=== PATIENT | female | born 1950 | race Caucasian/White ===

== ENCOUNTER 2023-02-09 05:41 | Day surgery (SDC) | payer MEDICARE, MEDICAID ==
[2023-02-09] VITALS (12 sets, daily range): BP systolic 86–133; BP diastolic 52–89
[~2023-02-09] VITALS: Ht 162.6 cm; Wt 88.9 kg
[2023-02-09] MEDS ORDERED: nitroGLYCERIN 0.4mg SUBLingual tab SL PRN (06:25)
[2023-02-09] MEDS ORDERED: dextrose 50%-water 50ml dispensing syringe IV PRN ×2 (06:25)
[2023-02-09] MEDS ORDERED: DEXTROSE 15 GM of carb/4 tabs (each vial/BOTTLE has 4 tablets) PO PRN ×2 (06:25)
[2023-02-09] MEDS ORDERED: insulin Lispro (HumaLOG) vial - multi-dose SQ SCH (06:25)
[2023-02-09] MEDS ORDERED: MESSAGE TO PHARMACY PO ONE (06:25)
[2023-02-09] MEDS ORDERED: LORazepam 0.5 MG tablet PO PRN (06:25)
[2023-02-09] MEDS ORDERED: glucagon, human recombinant 1mg kit SUBCUT PRN (06:25)
[2023-02-09] MEDS ORDERED: normal saline 1,000 ML IV SCH (06:25)
[2023-02-09] MEDS ORDERED: diphenhydrAMINE 25mg capsule PO PRN (06:25)
[2023-02-09] MEDS ORDERED: DULO30CA52 PO (06:27)
[2023-02-09] MEDS ORDERED: INSU100I31 SQ (06:27)
[2023-02-09] MEDS ORDERED: METF-438 PO (06:27)
[2023-02-09] MEDS ORDERED: CLON0.1T PO (06:27)
[2023-02-09] MEDS ORDERED: ASPI-10 PO (06:32)
[2023-02-09] MEDS ORDERED: METH-352 PO (06:39)
[2023-02-09] MEDS ORDERED: BENZ0.5T43 PO (06:39)
[2023-02-09] MEDS ORDERED: LURA40TA2 PO (06:39)
[2023-02-09] MEDS ORDERED: TRAZ-251 PO (06:39)
[2023-02-09] MEDS ORDERED: METH20TA42 PO (06:39)
[2023-02-09 06:43] LABS: BASOPHILS # (AUTO) 0.1 X10'3 (0-0.2); BASOPHILS % (AUTO) 0.9 % (0-1); EOSINOPHILS # (AUTO) 0.4 X10'3 (0-0.9); EOSINOPHILS % (AUTO) 5.8 % (0-6); HEMATOCRIT 39.5 % (35.0-45.0); LYMPHOCYTES # (AUTO) 2.5 X10'3 (1.1-4.8); LYMPHOCYTES % (AUTO) 33.2 % (21-51); MEAN CORPUSCULAR HEMOGLOBIN 28.8 PG (27.0-31.0); MEAN CORPUSCULAR HGB CONC 32.8 g/dL (33.0-36.5); MEAN CORPUSCULAR VOLUME 87.8 FL (78-98); MONOCYTES # (AUTO) 0.7 X10'3 (0-0.9); MONOCYTES % (AUTO) 8.7 % (2-12); NEUTROPHILS # (AUTO) 3.9 X10'3 (1.8-7.7); NEUTROPHILS % (AUTO) 51.4 % (42-75); PLATELET COUNT 301 X10'3 (140-440); RED CELL DISTRIBUTION WIDTH 13.6 % (11.5-14.5); WHITE BLOOD COUNT 7.5 X10'3 (4.5-11.0)
[2023-02-09 06:56] LABS: ALBUMIN 3.6 G/DL (3.4-5.0); ANION GAP 8 (8-16); BLOOD UREA NITROGEN 16 MG/DL (7-18); BUN/CREATININE RATIO 19.5 (10.0-20.0); CALCIUM 9.1 MG/DL (8.5-10.1); CHLORIDE 101 MMOL/L (99-107); CREATININE 0.82 MG/DL (0.40-0.90); GLUCOSE 292 MG/DL (70-104); POTASSIUM 3.8 MMOL/L (3.5-5.1); SODIUM 138 MMOL/L (135-145); TOTAL CARBON DIOXIDE 28.6 MMOL/L (24-32); eGFR 69 ML/MIN
[2023-02-09 06:57] LABS: APTT 25 SECONDS (22-32)
[2023-02-09] MEDS ORDERED: fentaNYL/PF 50MCG/1 ML 2ML syringe ONE (08:07)
[2023-02-09] MEDS ORDERED: midazolam 1 mg/ML 2ml injection ONE ×2 (08:07→09:31)
[2023-02-09] MEDS ORDERED: LIDOcaine 1% 30ml preserv. free vial ONE (08:07)
[2023-02-09] MEDS ORDERED: iohexol 350 MG/ML 50ML vial IV ONE ×2 (08:08→09:19)
[2023-02-09] MEDS ORDERED: iohexol 350MG/ML 100ml bottle IV ONE (08:08)
[2023-02-09] MEDS ORDERED: proCHLORperazine 10 MG/2 ml inj IV PRN (10:05)
[2023-02-09] MEDS ORDERED: OXAZEpam 15mg capsule PO PRN (10:05)
[2023-02-09] MEDS ORDERED: ondansetron/PF 4mg/2ml inj IV PRN (10:05)
[2023-02-09] MEDS ORDERED: HYDROcodone/acetaminophen 10/325mg tab PO PRN (10:50)
[2023-02-09] MEDS ORDERED: HYDROcodone/acetaminophen 5mg/325mg tablet PO PRN (10:50)
[2023-02-09] MEDS ORDERED: insulin glargine (Lantus) pen - multi-dose SQ SCH (21:00)
== END 2023-02-09 15:50 | disposition home or self-care (01) ==
LOC: SSTAY O 05:41
PROVIDERS: ATTEND Internal Medicine Cardiovascular Disease
DX: R94.39 Abnormal result of other cardiovascular function study (principal); I25.10 Atherosclerotic heart disease of native coronary artery without angina pectoris; E11.9 Type 2 diabetes mellitus without complications; I10 Essential (primary) hypertension; E78.5 Hyperlipidemia, unspecified; J44.9 Chronic obstructive pulmonary disease, unspecified; G89.4 Chronic pain syndrome; M47.9 Spondylosis, unspecified; F32.A Depression, unspecified; M53.87 Other specified dorsopathies, lumbosacral region; F43.10 Post-traumatic stress disorder, unspecified; F17.210 Nicotine dependence, cigarettes, uncomplicated; Z96.642 Presence of left artificial hip joint; Z88.2 Allergy status to sulfonamides; Z88.0 Allergy status to penicillin; Z88.5 Allergy status to narcotic agent; Z86.010 Personal history of colon polyps; Z79.84 Long term (current) use of oral hypoglycemic drugs; Z79.82 Long term (current) use of aspirin; Z79.899 Other long term (current) drug therapy; Z79.01 Long term (current) use of anticoagulants
CPT/HCPCS: 36415; 71046; 80048; 82948; 85025; 85610; 85730; 93005; 93458; 99152; 99153; C1760; J1644; J1815; J2250; J3010; J3490; J7030; Q0163; Q9967; A6258